=== PATIENT | male | born 1930 | race Caucasian/White ===

== ENCOUNTER → 2017-06-30 | Outpatient (CLI) | payer MEDICARE, OTHER ==
[~2017-06-30] MED LIST: ACET325 PO; ALBU3IS INH; ASPI81CH PO; ATOR10 PO; Acetaminophen325 M1 PO; Aspir 8181 MG PO; BISA10S PR; CEFP200 PO; CHOL10002 PO; CITA10S PO; CLOBET30L TOP; CLOP75 PO; CLOT10 SS; DOCU100 PO; FURO40 PO; Fludrocortison0.1 MG PO; GABA300 PO; HYDR1TAB94 PO; LOPE2C PO; LOSA50 PO; MEROPENEM-1 GM/50 ML IV; METF500 PO; MICO100S TOP; NYSTRITC; NYSTRITC TOP; Norco 5-325 Ta1 EACH PO; Pedi-Dri 100,0060 GM TOP; SIMV10 PO; Senna8.6 MG PO; TAMS.4ER PO; VITAMIN D-32000 UNI1 PO
[2017-06-30 21:46] LABS: Bilirubin, Urine Neg (Neg); Blood, Urine 2+ (Neg); Glucose Qualitative, Urine Neg (Neg); Ketones, Urine Neg (Neg); Leukocyte Esterase, Urine 3+ (Neg); Nitrite, Urine Pos (Neg); Protein, Urine 1+ (Neg); Specific Gravity, Urine 1.025 (1.003-1.022); Urobilinogen, Urine NORM (Normal)
[2017-06-30 22:06] LABS: Appearance, Urine Cloudy (Clear); Bacteria Many /hpf; Color, Urine Yellow (P-Yellow); Red Blood Cells, Urine 50-100 /hpf (0-2); Squamous Epithelial Cells Few /hpf (Few); White Blood Cells, Urine 50-100 /hpf (0-5)
== END | disposition home or self-care (01) ==
LOC: EDSTATUS 11:52 → LAB RH 21:35
DX: N39.0 Urinary tract infection, site not specified (principal)
CPT/HCPCS: 81001; 87077; 87086; 87186